=== PATIENT | male | born 1965 | race Caucasian/White ===

== ENCOUNTER 2019-11-20 18:26 | Inpatient (IN) | payer OTHER ==
[~2019-11-20] VITALS: Ht 165.1 cm; Wt 78.2 kg
[2019-11-20] MEDS ORDERED: ONDANSETRON HCL 4 MG/2 ML VIAL IVP ONE (19:45)
[2019-11-20] MEDS ORDERED: CefTRIAXone 1 GM/DEXTROSE 50 ML IV ONE (19:45)
[2019-11-20] MEDS ORDERED: KETOROLAC TROMETHAMINE 30 MG/ML VIAL IVP ONE (19:45)
[2019-11-20] MEDS ORDERED: HYDROmorphone 2 MG/ML SYRINGE IVP ONE (19:45)
[2019-11-20] MEDS ORDERED: SODIUM CHLORIDE 0.9% 2,000 ML IV ONE (19:45)
[2019-11-20] MEDS ORDERED: ACETAMINOPHEN 500 MG TABLET PO ONE (19:45)
[2019-11-20] MEDS ORDERED: ONDANSETRON HCL 4 MG/2 ML VIAL IVP PRN ×2 (20:30)
[2019-11-20] MEDS ORDERED: MORPHINE SULFATE 2 MG/ML SYRINGE IVP PRN (20:30)
[2019-11-20] MEDS ORDERED: DEXTROSE 5%-0.45% SODIUM CHL 1,000 ML IV ONE (20:30)
[2019-11-20] MEDS ORDERED: ACETAMINOPHEN 325 MG TABLET PO PRN (20:30)
[2019-11-20 21:31] LABS: BASOPHILS % (AUTO) 0.1 % (0.0-2.0); EOSINOPHILS % (AUTO) 0 % (1.0-6.0); HEMATOCRIT 47.3 % (41-53); HEMOGLOBIN 15.4 g/dL (13.5-17.5); LYMPHOCYTES # (AUTO) 0.9 K/uL (1.0-4.8); LYMPHOCYTES % (AUTO) 9.7 % (22.0-44.0); MEAN CORPUSCULAR HEMOGLOBIN 24.5 pg (26.0-34.0); MEAN CORPUSCULAR HGB CONC 32.7 G/dL (31.0-37.0); MEAN CORPUSCULAR VOLUME 75 fL (80-100); MONOCYTES # (AUTO) 0.9 K/uL (0.1-1.0); MONOCYTES % (AUTO) 9.9 % (2.0-9.0); NEUTROPHILS # (AUTO) 7.2 K/uL (1.8-7.7); NEUTROPHILS % (AUTO) 80.3 % (40.0-70.0); PLATELET COUNT (AUTO) 134 K/uL (150-450); RED BLOOD CELL COUNT(AUTO) 6.29 MIL/uL (4.50-5.90); RED CELL DISTRIBUTION WIDTH 14.6 % (11.5-14.5)
[2019-11-20 21:41] LABS: APPEARANCE,URINE CLEAR (CLEAR); GLUCOSE, URINE (UA) NEGATIVE (NEGATIVE); KETONES,URINE >=80 mg/dL (NEGATIVE); LEUKOCYTE ESTERASE ,URINE NEGATIVE (NEGATIVE); NITRATE,URINE NEGATIVE (NEGATIVE); OCCULT BLOOD,URINE NEGATIVE (NEGATIVE); PROTEIN,URINE POS 1+ (NEGATIVE)
[2019-11-20] MEDS: PANTOPRAZOLE SODIUM 40 MG/VIAL IVP SCH (21:42)
[2019-11-20] MEDS: DOCUSATE SODIUM 100 MG CAPSULE PO SCH (21:44)
[2019-11-20 21:53] LABS: ANION GAP 8 mmol/L (8-16); BILIRUBIN,URINE PRELIM. POSITIVE (NEGATIVE); CALCIUM, TOTAL 8.3 mg/dL (8.8-10.5); CARBON DIOXIDE 27 mmol/L (22-29); CHLORIDE 97 mmol/L (98-107); CREATININE 1.03 mg/dL (0.60-1.30); GLOMERULAR FILTR. RATE CALC > 60 mL/min (>60); GLUCOSE,RANDOM 120 mg/dL (70-110); SODIUM SERUM 132 mmol/L (136-145); UREA NITROGEN, BLOOD 16 mg/dL (7-18)
[2019-11-20 21:54] LABS: BACTERIA,URINE None Seen /HPF (None Seen); RBC,URINE None Seen /HPF (0-2); WBC,URINE 0-2 /HPF (0-5)
[2019-11-20 21:55] LABS: SQUAMOUS EPITHELIAL CELL,UR Rare /LPF (None Seen)
[2019-11-20 22:01] LABS: INFLUENZA TYPE A NEGATIVE FOR TYPE A (NEGATIVE)
[2019-11-20 22:02] LABS: B-TYPE NATRIURETIC PEPTIDE < 5 pg/mL (0-100); INFLUENZA TYPE B NEGATIVE FOR TYPE B (NEGATIVE); LACTIC ACID 1.2 mmol/L (0.4-2.0)
[2019-11-20 22:05] LABS: D-DIMER 0.19 mg/L FEU (0.00-0.50); PROTHROMBIN TIME 10.8 SEC (9.4-11.6)
[2019-11-20 22:07] LABS: ALANINE AMINOTRANSFERASE 56 U/L (12-78); ALBUMIN 3.6 g/dL (3.4-5.0); ALKALINE PHOSPHATASE 92 U/L (46-116); ASPARTATE AMINOTRANSFERASE 32 U/L (15-37); BILIRUBIN,TOTAL 0.8 mg/dL (0.1-1.0); C-REACTIVE PROTEIN QUANT 8.59 mg/dL (0.00-0.30); CREATINE KINASE, TOTAL ONLY 49 U/L (39-308); FERRITIN 379 ng/mL (26-388); LACTATE DEHYDROGENASE 287 U/L (85-227); LIPASE 110 U/L (73-393); TOTAL PROTEIN, SERUM 7.3 g/dL (6.4-8.2)
[2019-11-20 23:30] VITALS: BP 139/74
[2019-11-21] MEDS: PIPERACILLIN/TAZO 3.375 GM/D5W 50 ML IV SCH ×5 (00:35→22:39)
[2019-11-21 07:29] LABS: ANION GAP 6 mmol/L (8-16); CALCIUM, TOTAL 7.9 mg/dL (8.8-10.5); CARBON DIOXIDE 29 mmol/L (22-29); CHLORIDE 100 mmol/L (98-107); GLOMERULAR FILTR. RATE CALC > 60 mL/min (>60); GLUCOSE,RANDOM 89 mg/dL (70-110); POTASSIUM 4.5 mmol/L (3.5-5.1); SODIUM SERUM 135 mmol/L (136-145); UREA NITROGEN, BLOOD 18 mg/dL (7-18)
[2019-11-21] MEDS: DOCUSATE SODIUM 100 MG CAPSULE PO SCH ×2 (10:23→19:59)
[2019-11-21] MEDS: PANTOPRAZOLE SODIUM 40 MG/VIAL IVP SCH (10:23)
[2019-11-21] MEDS: DEXTROSE 5%-0.45% SODIUM CHL 1,000 ML IV SCH ×2 (10:28→20:04)
[2019-11-21 10:44] VITALS: BP 124/72
[2019-11-21 19:00] VITALS: BP 117/69
[2019-11-22] MEDS: PIPERACILLIN/TAZO 3.375 GM/D5W 50 ML IV SCH ×2 (04:05→11:17)
[2019-11-22 07:54] LABS: ANION GAP 7 mmol/L (8-16); CALCIUM, TOTAL 7.9 mg/dL (8.8-10.5); CARBON DIOXIDE 25 mmol/L (22-29); CHLORIDE 103 mmol/L (98-107); GLOMERULAR FILTR. RATE CALC > 60 mL/min (>60); GLUCOSE,RANDOM 120 mg/dL (70-110); POTASSIUM 3.7 mmol/L (3.5-5.1); SODIUM SERUM 135 mmol/L (136-145); UREA NITROGEN, BLOOD 7 mg/dL (7-18)
[2019-11-22 09:01] VITALS: BP 130/67
[2019-11-22] MEDS: DOCUSATE SODIUM 100 MG CAPSULE PO SCH ×3 (09:08→19:39)
[2019-11-22] MEDS: DEXTROSE 5%-0.45% SODIUM CHL 1,000 ML IV SCH (09:08)
[2019-11-22] MEDS: PANTOPRAZOLE SODIUM 40 MG/VIAL IVP SCH (09:08)
[2019-11-22 19:00] VITALS: BP 137/86
[2019-11-22] MEDS: AMOX TR/POT CLAV 875 MG/125 MG TABLET PO SCH (19:35)
[2019-11-23 07:22] LABS: BASOPHILS % (AUTO) 0.1 % (0.0-2.0); EOSINOPHILS % (AUTO) 0.6 % (1.0-6.0); HEMATOCRIT 45.1 % (41-53); HEMOGLOBIN 15.2 g/dL (13.5-17.5); LYMPHOCYTES # (AUTO) 1.4 K/uL (1.0-4.8); LYMPHOCYTES % (AUTO) 23.5 % (22.0-44.0); MEAN CORPUSCULAR HEMOGLOBIN 25.6 pg (26.0-34.0); MEAN CORPUSCULAR HGB CONC 33.8 G/dL (31.0-37.0); MEAN CORPUSCULAR VOLUME 76 fL (80-100); MONOCYTES # (AUTO) 0.7 K/uL (0.1-1.0); MONOCYTES % (AUTO) 11.2 % (2.0-9.0); NEUTROPHILS % (AUTO) 64.6 % (40.0-70.0); PLATELET COUNT (AUTO) 150 K/uL (150-450); RED BLOOD CELL COUNT(AUTO) 5.96 MIL/uL (4.50-5.90); RED CELL DISTRIBUTION WIDTH 14.7 % (11.5-14.5)
[2019-11-23 07:31] LABS: ANION GAP 4 mmol/L (8-16); CALCIUM, TOTAL 8.8 mg/dL (8.8-10.5); CARBON DIOXIDE 28 mmol/L (22-29); CHLORIDE 103 mmol/L (98-107); CREATININE 0.98 mg/dL (0.60-1.30); GLOMERULAR FILTR. RATE CALC > 60 mL/min (>60); GLUCOSE,RANDOM 97 mg/dL (70-110); POTASSIUM 4.6 mmol/L (3.5-5.1); SODIUM SERUM 135 mmol/L (136-145); UREA NITROGEN, BLOOD 8 mg/dL (7-18)
[2019-11-23] MEDS: PANTOPRAZOLE SODIUM 40 MG/VIAL IVP SCH (08:11)
[2019-11-23] MEDS: DOCUSATE SODIUM 100 MG CAPSULE PO SCH (08:12)
[2019-11-23] MEDS: AMOX TR/POT CLAV 875 MG/125 MG TABLET PO SCH (08:12)
[2019-11-23 09:23] VITALS: BP 119/68
== END 2019-11-23 10:43 | DRG 177 ==
LOC: EDSEX 18:28 → EMS 18:28 → UNDOADMIN 20:25 → 6N 20:25 → 6S 20:25
PROVIDERS: ADMIT Internal Medicine; ATTEND Internal Medicine
DX: U07.1 COVID-19 (principal); J12.89 Other viral pneumonia; K35.30 Acute appendicitis with localized peritonitis, without perforation or gangrene; J98.8 Other specified respiratory disorders; E86.0 Dehydration; Z80.0 Family history of malignant neoplasm of digestive organs; Z88.8 Allergy status to other drugs, medicaments and biological substances
CPT/HCPCS: 71250; 72192; 74150; 82728; 83605; 83615; 83735; 85379; 86140; 87040; 87426; 87804; 93005; 99291; C9113; J0696; J1170; J1885; J2405; J2543; J7030